=== PATIENT | female | born 1970 | race Two or more races ===

== ENCOUNTER 2025-08-03 06:12 | Day surgery (SDC) | payer OTHER, SELFPAY | END 2025-08-03 12:34 | disposition home or self-care (01) | LOC: GI 06:12 | PROVIDERS: ATTENDING PHYSICIAN Surgery | DX: K52.9 Noninfective gastroenteritis and colitis, unspecified (principal); D12.0 Benign neoplasm of cecum; K63.89 Other specified diseases of intestine | CPT/HCPCS: 45380; 88305 ==